=== PATIENT | female | born 1945 | race Caucasian/White ===

== ENCOUNTER → 2017-12-07 10:26 | Outpatient (CLI) | payer MEDICARE, OTHER ==
[2015-11-14 11:34] VITALS: BMI 22.6
[~2017-12-07 10:26] MED LIST: ADVAIR 250/501 DISK INH; BAYER CHEWABLE81 MG PO; COMBIVENT RESPIM4 GM INH; COREG25 MG PO; COZAAR50 MG PO; DALIRESP500 MCG PO; DOXYCYCLINE HY100 M2 PO; FLORAJEN3 CAPS460 MG PO; FLUTICASONE PRO16 GM NASAL; IPRAT-ALBUT 0.5-3 ML UPD; K-TAB10 MEQ PO; LANOXIN250 MCG PO; LASIX40 MG PO; OMNICEF300 MG PO; PREDNISONE20 MG PO; SALINE NASAL SP45 ML NASAL; SINGULAIR10 MG PO; XANAX0.25 MG PO
== END | disposition home or self-care (01) ==
LOC: D.RT 10:26
DX: J44.9 Chronic obstructive pulmonary disease, unspecified (principal)

== ENCOUNTER 2018-06-26 12:37 | Inpatient (IN) | payer MEDICARE, OTHER ==
[~2018-06-26] VITALS: Ht 167.6 cm; Wt 70.3 kg
[2018-06-26] VITALS (8 sets, daily range): BP systolic 136–148; BP diastolic 63–76
[2018-06-26 13:35] LABS: BASOPHILS 0.1 % (0-2); EOSINOPHILS 1.1 % (0-7); HEMATOCRIT 37.3 % (36.0-48.0); HEMOGLOBIN 11.8 g/dL (12-16); IMMATURE GRANULOCYTES 0.4 % (0-5); LYMPHOCYTES 10.9 % (15-50); MCHC 31.6 g/dL (31.0-37.0); MCV 91.6 fL (80.0-100.0); MEAN PLATELET VOLUME 8.7 fL (7.4-10.4); MONOCYTES 12.1 % (2-11); NEUTROPHILS 75.4 % (40-80); PLATELET COUNT 153 10x3/uL (130-400); RBC 4.07 10x6/uL (4.00-5.40)
[2018-06-26 13:36] LABS: APTT 25.4 SECONDS (22.8-39.4); INR 1.1 (0.85-1.17); PROTIME 13.7 SECONDS (11.6-15.0)
[2018-06-26 13:37] LABS: D-DIMER-QUANTITATIVE 0.64 ug/mLFEU (0.20-0.54)
[2018-06-26 13:38] LABS: ALBUMIN 3.2 g/dL (3.4-5.0); ALKALINE PHOSPHATASE 64 U/L (46-116); ALT (SGPT) 28 U/L (10-68); BILIRUBIN - TOTAL 0.92 mg/dL (0.2-1.3); CALC OSMOLALITY 287 mosm/kg (275-300); CALCIUM 8.9 mg/dL (8.5-10.1); CARBON DIOXIDE 30.9 mmol/L (21.0-32.0); CHLORIDE - SERUM 105 mmol/L (98-107); CREATININE - SERUM 0.4 mg/dL (0.6-1.3); GLUCOSE 101 mg/dL (74-106); POTASSIUM - SERUM 3.1 mmol/L (3.5-5.1); PROTEIN - SERUM 6.4 g/dL (6.4-8.2); SODIUM 145 mmol/L (136-145); UREA NITROGEN 10 mg/dL (7-18); eGFR NON AFRICAN AMERICAN > 90 mL/min (90-120)
[2018-06-26 13:56] LABS: CREATINE KINASE 29 UL (21-215); MAGNESIUM - SERUM 1.8 mg/dL (1.8-2.4)
[2018-06-26 13:59] LABS: TROPONIN-I 0.065 ng/mL (0.000-0.060)
--- NOTE | 2018-06-26 20:40 | NUR ---
REC'D. IN WET BED COMPLETE BATH GIVEN. RATING PAIN LEFT HIP 8 ON 1/10 PAIN SCALE.WILL CONTINUE TO MONITOR FOR ANY CHGES AND FOLLOW CURRENT PLAN OF CARE.
[2018-06-27] VITALS (7 sets, daily range): BP systolic 125–149; BP diastolic 64–77; Ht 167.6 cm; Wt 70.3 kg
--- NOTE | 2018-06-27 07:35 | NUR ---
PT RESTING IN BED, EYES OPEN. NO C/O PAIN. NO S/S OF ACUTE DISTRESS NOTED. PT ON BEDREST.ON ELECTROLYTE PROTOCOL. PT ON TELEMETRY ST 115. ON 3L O2, NC. IV TO LEFT FOREARM, SL. SITE PATENT WITHOUT REDNESS OR SWELLING. PT DENIES ANYTHING FURTHER AT THIS TIME. CALL LIGHT IN REACH. AT BEDSIDE. WILL CONTINUE TO MONITOR.
[2018-06-27 08:47] LABS: CALC OSMOLALITY 287 mosm/kg (275-300); CALCIUM 8.9 mg/dL (8.5-10.1); CARBON DIOXIDE 28.7 mmol/L (21.0-32.0); CHLORIDE - SERUM 105 mmol/L (98-107); CREATININE - SERUM 0.4 mg/dL (0.6-1.3); GLUCOSE 106 mg/dL (74-106); PRO BNP 3138 pg/mL (0-125); SODIUM 145 mmol/L (136-145); TROPONIN-I 0.045 ng/mL (0.000-0.060); UREA NITROGEN 9 mg/dL (7-18); eGFR NON AFRICAN AMERICAN > 90 mL/min (90-120)
[2018-06-27 08:48] LABS: POTASSIUM - SERUM 3.6 mmol/L (3.5-5.1)
[2018-06-27 08:51] LABS: BASOPHILS 0.2 % (0-2); EOSINOPHILS 1.5 % (0-7); HEMATOCRIT 38.4 % (36.0-48.0); HEMOGLOBIN 11.9 g/dL (12-16); IMMATURE GRANULOCYTES 0.4 % (0-5); LYMPHOCYTES 15.4 % (15-50); MCH 28.7 pg (26.0-34.0); MCV 92.8 fL (80.0-100.0); MEAN PLATELET VOLUME 9.7 fL (7.4-10.4); MONOCYTES 12.8 % (2-11); NEUTROPHILS 69.7 % (40-80); PLATELET COUNT 143 10x3/uL (130-400); RBC 4.14 10x6/uL (4.00-5.40); RDW 15.2 % (11.5-14.5); WBC 9.3 10x3/uL (4.8-10.8)
--- NOTE | 2018-06-27 18:43 | NUR ---
PT RESTING IN BED, EYES OPEN. NO C/O PAIN. NO S/S OF ACUTE DISTRESS NOTED. CALL LIGHT IN REACH. PT DENIES ANYTHING FURTHER. WILL CONTINUE TO MONITOR.
[2018-06-28 01:35] VITALS: BP 130/74
--- NOTE | 2018-06-28 05:03 | NUR ---
REC'D AT CHGE OF SHIFT.IN BED FAMILY AT BEDSIDE.CONTINUES TO C/O LEFT HIP PAIN. WILL CONTINUE TO MONITOR FOR ANY CHGES. AND FOLLOW CURRENT PLAN OF CARE.
[2018-06-28 05:25] VITALS: BP 120/68
--- NOTE | 2018-06-28 07:28 | NUR ---
PT IS RESTING IN BED WITH EYES OPEN. RESPIRATIONS ARE EVEN AND UNLABORED. O2 VIA NC @ 3L. PT DENIES PRESENCE OF DYSPNEA AND SOB AT THIS TIME. +2 PITTING EDEMA TO BILATERAL LOWER EXTREMITIES NOTED. PEDAL PULSES ARE PALPABLE AND CAP REFILL IS <3 SECONDS. EXP WHEEZES HEARD ON BILATERAL LOBES THROUGHOUT. PT REPORTS A SLIGHT COUGH. PT DENIES PRESENCE OF N/V. BED IS IN THE LOWEST POSITION. CALL LIGHT AND BEDSIDE TABLE ARE WITHIN REACH. SIDE RAILS X 2. WILL CONT TO MONITOR.
[2018-06-28 08:42] VITALS: BP 113/63
[2018-06-28 13:07] VITALS: BP 100/51
[2018-06-28 17:23] VITALS: BP 118/70
[2018-06-28 17:39] VITALS: BP 105/57
[2018-06-28 18:35] LABS: BASOPHILS 0.2 % (0-2); EOSINOPHILS 2.3 % (0-7); HEMATOCRIT 34.6 % (36.0-48.0); HEMOGLOBIN 10.6 g/dL (12-16); IMMATURE GRANULOCYTES 0.7 % (0-5); LYMPHOCYTES 19.6 % (15-50); MCHC 30.6 g/dL (31.0-37.0); MONOCYTES 13.4 % (2-11); NEUTROPHILS 63.8 % (40-80); PLATELET COUNT 166 10x3/uL (130-400); RBC 3.65 10x6/uL (4.00-5.40); RDW 15.4 % (11.5-14.5); WBC 8.8 10x3/uL (4.8-10.8)
[2018-06-28 18:36] LABS: MCV 94.8 fL (80.0-100.0)
[2018-06-28 18:55] LABS: ALBUMIN 2.8 g/dL (3.4-5.0); ANION GAP 11.7 mmol/L (8-16); BILIRUBIN - TOTAL 0.32 mg/dL (0.2-1.3); CALCIUM 8.6 mg/dL (8.5-10.1); CARBON DIOXIDE 30.4 mmol/L (21.0-32.0); PROTEIN - SERUM 6.1 g/dL (6.4-8.2)
[2018-06-28 18:58] LABS: POTASSIUM - SERUM 5.1 mmol/L (3.5-5.1)
[2018-06-29 03:05] VITALS: BP 122/69
--- NOTE | 2018-06-29 03:42 | NUR ---
I have reviewed this patient and I concur with the Shift Assessment completed by the Licensed Practical Nurse today this shift.
[2018-06-29 07:18] LABS: BASOPHILS 0.1 % (0-2); EOSINOPHILS 0.6 % (0-7); HEMATOCRIT 35.9 % (36.0-48.0); HEMOGLOBIN 10.8 g/dL (12-16); IMMATURE GRANULOCYTES 0.6 % (0-5); LYMPHOCYTES 14.9 % (15-50); MCH 28.6 pg (26.0-34.0); MCHC 30.1 g/dL (31.0-37.0); MEAN PLATELET VOLUME 9.4 fL (7.4-10.4); MONOCYTES 10.1 % (2-11); NEUTROPHILS 73.7 % (40-80); PLATELET COUNT 188 10x3/uL (130-400); RBC 3.78 10x6/uL (4.00-5.40); RDW 15.4 % (11.5-14.5); WBC 8.4 10x3/uL (4.8-10.8)
[2018-06-29 07:28] LABS: ALBUMIN 2.9 g/dL (3.4-5.0); ALKALINE PHOSPHATASE 62 U/L (46-116); ALT (SGPT) 24 U/L (10-68); BILIRUBIN - TOTAL 0.43 mg/dL (0.2-1.3); CALC OSMOLALITY 285 mosm/kg (275-300); CALCIUM 9.1 mg/dL (8.5-10.1); CARBON DIOXIDE 31.3 mmol/L (21.0-32.0); CHLORIDE - SERUM 105 mmol/L (98-107); GLUCOSE 127 mg/dL (74-106); POTASSIUM - SERUM 4.7 mmol/L (3.5-5.1); PROTEIN - SERUM 6.4 g/dL (6.4-8.2); SODIUM 141 mmol/L (136-145); UREA NITROGEN 21 mg/dL (7-18); eGFR NON AFRICAN AMERICAN 87 mL/min (90-120)
[2018-06-29 07:35] LABS: CREATININE - SERUM 0.7 mg/dL (0.6-1.3)
[2018-06-29 09:05] VITALS: BP 124/64
--- NOTE | 2018-06-29 10:25 | NUR ---
PATIENT NOTED TO HAVING A LOT OF BRUISING ON ARMS AND LEGS, ALL AREAS PADDED SECURED WITH NO IMPINGEMENTS, UNDER RIGHT LEG EXTRA PADDING, TWORLEY.
--- NOTE | 2018-06-29 10:38 | NUR ---
MORNING ASSESSMENT COMPLETE. SEE ASSESSMENT FLOWSHEET FOR FURTHER DETIALS. PT IN SX.
[2018-06-29 12:02] VITALS: BP 119/62
--- NOTE | 2018-06-29 13:33 | NUR ---
Nutrition Follow Up: Chart reviewed Diet: Regular PO Intake: 100% meal avg BM: 06/28/18 Labs reviewed Meds noted including Reglan, Lasix Rec continue current diet. RD following.
[2018-06-29 16:17] LABS: APPEARANCE CLEAR (CLEAR); BILIRUBIN NEGATIVE (NEGATIVE); COLOR STRAW (YELLOW); KETONE NEGATIVE (NEGATIVE); NITRITE NEGATIVE (NEGATIVE); SPECIFIC GRAVITY 1.005 (1.005-1.020); UROBILINOGEN NORMAL (NORMAL)
--- NOTE | 2018-06-29 16:29 | MORECARE ---
CASE MANAGEMENT DISCHARGE SUMMARY PATIENT: XU URIBE UNIT: [id number] ADM DATE: 06/26/18 AGE: 73 : 47 SEX: F ROOM/BED: D.2229 AUTHOR: TRACY TIERNEY PHYSICIAN: REFERRING PHYSICIAN: TAYLA ESPINOZA MD DATE OF SERVICE: 06/29/18 Discharge Plan Patient Name: XU URIBE Facility: [facility]:[place] : 1945 Planned Disposition: Inpatient Rehab Anticipated Discharge Date: Discharge Date: Expected LOS: Initial Reviewer: [email or web address] Initial Review Date: 06/29/2018 Generated: 06/29/18 5:29 pm DCPIA - Discharge Planning Initial Assessment Updated by [email or web address]: Kamilla Carcamo on 06/29/18 4:26 pm * Is the patient Alert and Oriented? Yes * PCP Dr. Espinoza * Pharmacy [place] [id number] * Preadmission Environment Home with Family * ADLs Partial Dependent * Partial ADLs (Assistance needed) Ambulation * Equipment Elevated Toliet Seat Nebulizer Other Oxygen Shower Chair * Other Equipment Lift chair Portable oxygen * List name and contact numbers for known caregivers / representatives who currently or will assist patient after discharge: Singh Uribe - spouse - [phone] * Verbal permission to speak to the caregivers and representatives has been obtained from the patient. Yes * Community resources currently utilized None * Please name any agencies selected above. [facility] for DME for oxygen supplies * Additional services required to return to the preadmission environment? Yes * Can the patient safely return to the preadmission environment? Yes * Has this patient been hospitalized within the prior 30 days at any hospital? No Patient Name: XU URIBE Page [id number] at 1629 All edits/amendments must be made on the electronic document DICTATION DATE: 06/29/181628 CLINIC OFFICE MANAGER: CAIN 06/29/181628 RPT#: [id number] DC DATE: STATUS: ADM IN [facility] [address] [place] [address] END OF REPORT
[2018-06-29 16:31] LABS: GLUCOSE NEGATIVE (NEGATIVE); PROTEIN NEGATIVE (NEGATIVE)
--- NOTE | 2018-06-29 16:42 | MORECARE ---
CASE MANAGEMENT DISCHARGE SUMMARY PATIENT: XU URIBE UNIT: [id number] ADM DATE: 06/26/18 AGE: 73 : 47 SEX: F ROOM/BED: D.2229 AUTHOR: KELSY,DOC PHYSICIAN: REFERRING PHYSICIAN: TAYLA ESPINOZA MD DATE OF SERVICE: 06/29/18 Discharge Plan Patient Name: XU URIBE Facility: [facility]:[place] : 1945 Planned Disposition: Inpatient Rehab Anticipated Discharge Date: Discharge Date: Expected LOS: Initial Reviewer: [email or web address] Initial Review Date: 06/29/2018 Generated: 06/29/18 5:41 pm Comments DCP- Discharge Planning Updated by [email or web address]: Kamilla Carcamo on 06/29/18 3:[address] Patient Name: XU URIBE Admission Status: ER Accout number: [id number] Admission Date: 06-26-2018 : 1945 Admission Diagnosis:HYPERTENSIVE HEART DISEASE WITH HEART FAILURE Attending: TAYLA ESPINOZA Current LOS: 3 Anticipated DC Date: Planned Disposition: Inpatient Rehab Primary Insurance: MEDICARE A & B Discharge Planning Comments: CM met with patient to complete initial dc planning assessment. CM educated patient on the CM role and verbal consent given by patient to complete assessment. Patient lives at home with her . She states that she has rented a wheelchair since her hips have been bothering her. States before her hips started causing her problems, she was completely independent. CM discussed availability of home health, rehab services, and medical equipment. Patient states she will need a walker prior to discharge and may need rehab. Her preference would be inpatient rehab here at [facility]. States if they do not accept her she would consider [facility]. CM will continue to follow and will assist as needed with dc plans/needs. [employer] Consultant: Kamilla Carcamo DCPIA - Discharge Planning Initial Assessment Updated by [email or web address]: Kamilla Carcamo on 06/29/18 4:26 pm * Is the patient Alert and Oriented? Yes * PCP Dr. Espinoza * [facility] * Preadmission Environment Home with Family * ADLs Partial Dependent * Partial ADLs (Assistance needed) Ambulation * Equipment Elevated Toliet Seat Nebulizer Other Oxygen Shower Chair * Other Equipment Lift chair Portable oxygen * List name and contact numbers for known caregivers / representatives who currently or will assist patient after discharge: Singh Uribe - spouse - [phone] * Verbal permission to speak to the caregivers and representatives has been obtained from the patient. Yes * Community resources currently utilized None * Please name any agencies selected above. [facility] for DME for oxygen supplies * Additional services required to return to the preadmission environment? Yes * Can the patient safely return to the preadmission environment? Yes * Has this patient been hospitalized within the prior 30 days at any hospital? No Last DP export: 06/29/18 3:29 p Patient Name: XU URIBE Page [id number] at 1642 All edits/amendments must be made on the electronic document DICTATION DATE: 06/29/181640 GAS COMPRESSOR TURBINE OPERATOR: CAIN 06/29/181640 RPT#: [id number] DC DATE: STATUS: ADM IN [facility] [address] [place] [address] END OF REPORT
[2018-06-29 17:40] VITALS: BP 109/61
[2018-06-29 20:06] VITALS: BP 121/67
[2018-06-30 00:57] VITALS: BP 121/64
--- NOTE | 2018-06-30 03:01 | NUR ---
I have reviewed this patient and I concur with the Shift Assessment completed by the Licensed Practical Nurse today this shift.
[2018-06-30 06:13] LABS: BASOPHILS 0.1 % (0-2); EOSINOPHILS 0.1 % (0-7); HEMATOCRIT 30.5 % (36.0-48.0); HEMOGLOBIN 9.4 g/dL (12-16); IMMATURE GRANULOCYTES 0.6 % (0-5); LYMPHOCYTES 9.1 % (15-50); MCH 28.5 pg (26.0-34.0); MCHC 30.8 g/dL (31.0-37.0); MEAN PLATELET VOLUME 9.3 fL (7.4-10.4); MONOCYTES 14.4 % (2-11); NEUTROPHILS 75.7 % (40-80); PLATELET COUNT 174 10x3/uL (130-400)
[2018-06-30 06:19] LABS: WBC 10.9 10x3/uL (4.8-10.8)
[2018-06-30 06:20] LABS: MCV 92.4 fL (80.0-100.0)
[2018-06-30 06:24] LABS: CALC OSMOLALITY 284 mosm/kg (275-300); CALCIUM 8.5 mg/dL (8.5-10.1); CHLORIDE - SERUM 104 mmol/L (98-107); CREATININE - SERUM 0.6 mg/dL (0.6-1.3); GLUCOSE 126 mg/dL (74-106); POTASSIUM - SERUM 4.2 mmol/L (3.5-5.1); SODIUM 141 mmol/L (136-145); UREA NITROGEN 18 mg/dL (7-18); eGFR NON AFRICAN AMERICAN > 90 mL/min (90-120)
--- NOTE | 2018-06-30 08:00 | NUR ---
A/A/OX4. RESTING QUIETLY POSITIONED ON BACK. DRESSING TO LEFT HIP WITH SMALL AMT BLOODY DRAINAGE. WILL CONTINUE TO OBSERVE FOR MORE DRAINAGE. ASSESSMENT COMPLETED WITH NO REQUESTS VOICED. WILL CONTINUE POC.
--- NOTE | 2018-06-30 09:41 | OP ---
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 PROCEDURE: Left total hip arthroplasty. SURGEON: Cristina Jay MD ANESTHESIA: General. INTRAOPERATIVE COMPLICATIONS: None. SUMMARY OF PATHOLOGIC FINDINGS: Collapse of the superior aspect of the femoral head consistent with preoperative radiographs. INDICATIONS: This patient became so painful that she would not take her Lasix because she has to get up and walk to the bathroom. She came in with congestive heart failure. After that was cleared and we got cardiac and pulmonary clearance for surgery. The patient was brought to the operating room for total hip arthroplasty for avascular necrosis. OPERATIVE SUMMARY IN DETAIL: After obtaining the appropriate preoperative orthopedic surgery consent as well as anesthetic consultation, evaluation and clearance, the patient was brought to the operating room and placed on the operating table in supine position. After general laryngeal mask airway was administered, the patient was placed in a right lateral decubitus and all pressure points were well padded to include down leg peroneal pad as well as the axillary roll. The patient was held firmly to the operating table using the vacuum pack suction system. Left lower extremity and hip were then prepped and draped in routine sterile fashion. Curvilinear incision was made in the greater trochanter, this was taken down along the IT band, was split in midline on the IT band to reveal the gluteus medius minimus attached the greater trochanter. This was reflected anteriorly to reveal the hip capsule. The hip capsule was split in a T-type fashion and saved for later reapproximation. Hip was dislocated. Femoral neck cut was made using the femoral neck cutting guide for the Accolade II system. Pathologic femoral head was noted. Attention was turned to the acetabulum. Circumferential labrectomy was followed by serial and sequential reaming for a size 54 Trident II cup, which was put into place with excellent capture. Polyethylene was then put into place. Attention was then returned to the proximal femur. Leg in the [id number] position. Serial and sequential reaming and broaching were done of the proximal femur for a size 6. Accolade II stem, which seated nicely. Trial was undertaken with modular heads. Standard was thought to be the most appropriate. Standard head was tamped into place on the Clemens taper. Ceramic Biolox was then reduced into the acetabulum, taken through range of motion and found to be stable in all planes. Copious irrigation was then followed by closure of the capsule with #2 Ethibond followed by #5 Ethibond reapproximation back to the greater trochanter using transosseous sutures. IT band was likewise closed with #5 Ethibond, then followed by #1 Vicryl, 2-0 Vicryl and skin geoff. Intraoperative radiograph showed excellent OPERATIVE REPORT [id number] XU URIBE position and placement of all components. Sterile dressings were applied. The patient was awakened and taken to recovery room in stable condition. All final needle and sponge counts were correct. TRANSINT:[id number] Voice Confirmation ID: [id number] DOCUMENT ID: [id number] PIERRE SHEA, CRISTINA ALVARADO at 0941 CC: [id number] DICTATION DATE: 06/29/18 1102 VIDEO ARCADE MANAGER: 06/29/18 1240 ADM IN [facility] [address] [place] [address]
--- NOTE | 2018-06-30 09:53 | MORECARE ---
CASE MANAGEMENT DISCHARGE SUMMARY PATIENT: XU URIBE UNIT: [id number] ADM DATE: 06/26/18 AGE: 73 : 47 SEX: F ROOM/BED: D.2229 AUTHOR: TRACY TIERNEY PHYSICIAN: REFERRING PHYSICIAN: TAYLA ESPINOZA MD DATE OF SERVICE: 06/30/18 Discharge Plan Patient Name: XU URIBE Facility: [facility]:[place] : 1945 Planned Disposition: Inpatient Rehab Anticipated Discharge Date: Discharge Date: Expected LOS: Initial Reviewer: [email or web address] Initial Review Date: 06/29/2018 Generated: 06/30/18 10:53 am Comments DCP- Discharge Planning Updated by [email or web address]: Carrol Terrazas on 06/30/18 8:[address] CM CONSULT RECEIVED THIS AM. PATIENT HAS BEEN ASSESSED FOR DISCHARGE PLANNING. AWAITING OT AND PT EVALUATIONS. [facility] REHAB WILL PRESCREEN. CASE MANGEMENT FOLLOWING. DCP- Discharge Planning Updated by [email or web address]: Kamilla Carcamo on 06/29/18 3:[address] Patient Name: XU URIBE Admission Status: ER Accout number: [id number] Admission Date: 06-26-2018 : 1945 Admission Diagnosis:HYPERTENSIVE HEART DISEASE WITH HEART FAILURE Attending: TAYLA ESPINOZA Current LOS: 3 Anticipated DC Date: Planned Disposition: Inpatient Rehab Primary Insurance: MEDICARE A & B Discharge Planning Comments: CM met with patient to complete initial dc planning assessment. CM educated patient on the CM role and verbal consent given by patient to complete assessment. Patient lives at home with her . She states that she has rented a wheelchair since her hips have been bothering her. States before her hips started causing her problems, she was completely independent. CM discussed availability of home health, rehab services, and medical equipment. Patient states she will need a walker prior to discharge and may need rehab. Her preference would be inpatient rehab here at [facility]. States if they do not accept her she would consider [facility]. CM will continue to follow and will assist as needed with dc plans/needs. Head Packager: Kamilla Carcamo DCPIA - Discharge Planning Initial Assessment Updated by [email or web address]: Kamilla Carcamo on 06/29/18 4:26 pm * Is the patient Alert and Oriented? Yes * PCP Dr. Espinoza * Pharmacy [place] [address] * Preadmission Environment Home with Family * ADLs Partial Dependent * Partial ADLs (Assistance needed) Ambulation * Equipment Elevated Toliet Seat Nebulizer Other Oxygen Shower Chair * Other Equipment Lift chair Portable oxygen * List name and contact numbers for known caregivers / representatives who currently or will assist patient after discharge: Singh Uribe - spouse - [phone] * Verbal permission to speak to the caregivers and representatives has been obtained from the patient. Yes * Community resources currently utilized None * Please name any agencies selected above. [employer] for DME for oxygen supplies * Additional services required to return to the preadmission environment? Yes * Can the patient safely return to the preadmission environment? Yes * Has this patient been hospitalized within the prior 30 days at any hospital? No Last DP export: 06/29/18 3:42 p Patient Name: XU URIBE Page 12265 at 0953 All edits/amendments must be made on the electronic document DICTATION DATE: 06/30/18952 TABLE GAMES SHIFT MANAGER: CAIN 06/30/18952 RPT#: [id number] DC DATE: STATUS: ADM IN [facility] [address] [place] [address] END OF REPORT
[2018-06-30 10:19] VITALS: BP 109/58
--- NOTE | 2018-06-30 16:45 | NUR ---
rehab prescreen: pt needs a therapy eval to see her function level. will eval when able to know her function level. thank you for this eval. leighann trevizo lpn clinical liasion
[2018-06-30 18:08] VITALS: BP 142/88
[2018-06-30 21:07] VITALS: BP 105/56
[2018-07-01 05:29] VITALS: BP 133/58
[2018-07-01 06:33] LABS: BASOPHILS 0.2 % (0-2); EOSINOPHILS 1.4 % (0-7); HEMATOCRIT 28.1 % (36.0-48.0); HEMOGLOBIN 8.8 g/dL (12-16); IMMATURE GRANULOCYTES 1.1 % (0-5); LYMPHOCYTES 14.6 % (15-50); MCH 28.9 pg (26.0-34.0); MCHC 31.3 g/dL (31.0-37.0); MCV 92.4 fL (80.0-100.0); MONOCYTES 13.6 % (2-11); NEUTROPHILS 69.1 % (40-80); PLATELET COUNT 162 10x3/uL (130-400); RBC 3.04 10x6/uL (4.00-5.40); RDW 15.4 % (11.5-14.5); WBC 11.1 10x3/uL (4.8-10.8)
[2018-07-01 06:50] LABS: ANION GAP 11.1 mmol/L (8-16); CALCIUM 8.6 mg/dL (8.5-10.1); CARBON DIOXIDE 30.9 mmol/L (21.0-32.0)
[2018-07-01 08:05] VITALS: BP 98/46
[2018-07-01 11:53] VITALS: BP 105/54
--- NOTE | 2018-07-01 14:17 | NUR ---
I have reviewed this patient and I concur with the Shift Assessment completed by the Licensed Practical Nurse today this shift.
[2018-07-01 15:06] VITALS: BP 88/46
--- NOTE | 2018-07-01 15:45 | NUR ---
I have reviewed this patient and I concur with the Shift Assessment completed by the Licensed Practical Nurse today this shift.
[2018-07-01 20:32] VITALS: BP 156/48
--- NOTE | 2018-07-01 21:00 | NUR ---
PT REPORTS STILL UNABLE TO PASS BM SINCE THE DAY BEFORE SHE WAS ADMITTED. BOWEL SOUNDS ACTIVE. ABDOMEN NON-TENDER, PT HAS BEEN PASSING GAS QUITE FREQUENTLY AND FEELS THE URGE, BUT NOTHING COMES OUT. ENCOURAGED PT TO DRINK FLUIDS, MOVE POSITIONS IN BED FREQUENTLY, AND AMBULATING MAY HELP. DRESSING TO LEFT HIP IS SATURATED WITH BLOOD. BANDAGE REMOVED, INCISION CLEANSED, CLEAN MEPILEX BORDER REAPPLIED TO SITE.
[2018-07-02 01:25] VITALS: BP 101/47
[2018-07-02 06:02] VITALS: BP 108/58
[2018-07-02 07:41] LABS: CALC OSMOLALITY 284 mosm/kg (275-300); CALCIUM 8.8 mg/dL (8.5-10.1); CARBON DIOXIDE 28.8 mmol/L (21.0-32.0); CHLORIDE - SERUM 103 mmol/L (98-107); GLUCOSE 109 mg/dL (74-106); HEMATOCRIT 27.9 % (36.0-48.0); MCHC 32.3 g/dL (31.0-37.0); MEAN PLATELET VOLUME 9.2 fL (7.4-10.4); PLATELET COUNT 172 10x3/uL (130-400); POTASSIUM - SERUM 4.1 mmol/L (3.5-5.1); RDW 15.5 % (11.5-14.5); SODIUM 139 mmol/L (136-145); UREA NITROGEN 30 mg/dL (7-18); WBC 11.8 10x3/uL (4.8-10.8)
[2018-07-02 07:43] LABS: CREATININE - SERUM 0.6 mg/dL (0.6-1.3); eGFR NON AFRICAN AMERICAN > 90 mL/min (90-120)
[2018-07-02 08:05] LABS: EOSINOPHILS 1 % (0-7); LYMPHOCYTES 14 % (15-50); MONOCYTES 7 % (2-11); NEUTROPHILS 74 % (40-80); PLATELET ESTIMATE NORMAL
[2018-07-02 09:00] VITALS: BP 120/69
--- NOTE | 2018-07-02 11:37 | NUR ---
PATIENT UP TO BEDSIDE TOILET THEN BACK TO CHAIR. CHAIR ALARM ON GOWN, PAD, SOCKS, AND SCD'S CHANGED AND REPLACED. PHONE/CL IN REACH. [facility]
[2018-07-02 14:03] VITALS: BP 90/44
[2018-07-02 16:53] VITALS: BP 102/52
--- NOTE | 2018-07-02 21:15 | NUR ---
A&O. REPORTS PAIN TO LEFT HIP, 09/15. DRESSING C/D/I. VITAL SIGNS STABLE. WILL CONTINUE TO MONITOR.
[2018-07-02 22:12] VITALS: BP 100/54
[2018-07-03 01:15] VITALS: BP 107/57
--- NOTE | 2018-07-03 03:08 | NUR ---
I have reviewed this patient and I concur with the Shift Assessment completed by the Licensed Practical Nurse today this shift.
[2018-07-03 05:11] LABS: BASOPHILS 0.2 % (0-2); HEMATOCRIT 25.5 % (36.0-48.0); IMMATURE GRANULOCYTES 1.5 % (0-5); LYMPHOCYTES 16.7 % (15-50); MCH 28.4 pg (26.0-34.0); MCHC 31.4 g/dL (31.0-37.0); MCV 90.4 fL (80.0-100.0); MEAN PLATELET VOLUME 9.2 fL (7.4-10.4); MONOCYTES 11.9 % (2-11); NEUTROPHILS 67.7 % (40-80); PLATELET COUNT 205 10x3/uL (130-400); RBC 2.82 10x6/uL (4.00-5.40); RDW 15.4 % (11.5-14.5); WBC 9.5 10x3/uL (4.8-10.8)
[2018-07-03 05:29] VITALS: BP 103/59
[2018-07-03 05:45] LABS: CALC OSMOLALITY 283 mosm/kg (275-300); CALCIUM 8.6 mg/dL (8.5-10.1); CARBON DIOXIDE 30.2 mmol/L (21.0-32.0); CHLORIDE - SERUM 102 mmol/L (98-107); CREATININE - SERUM 0.5 mg/dL (0.6-1.3); GLUCOSE 121 mg/dL (74-106); POTASSIUM - SERUM 4.1 mmol/L (3.5-5.1); SODIUM 139 mmol/L (136-145); UREA NITROGEN 26 mg/dL (7-18); eGFR NON AFRICAN AMERICAN > 90 mL/min (90-120)
--- NOTE | 2018-07-03 08:18 | NUR ---
ALERT AND ORIENTED X 3. LUNGS CLEAR BILATERALLY IN ALL BREWER. HEART SOUNDS S1 AND S2 HEARD IN ALL BREWER. TELEMETRY IN PLACE. 81 SINUS RHYTHM. O2 IN PLACE AT 1.5L. BOWEL SOUNDS ACTIVE X 4. SKIN INTACT WITHOUT REDNESS. DENIES PAIN. DENIES NEEDS. FALL PRECAUTIONS IN PLACE. BED LOW. CALL SORENSON AND PERSONAL ITEMS IN REACH. WILL CONTINUE TO MONITOR.
[2018-07-03 09:04] VITALS: BP 109/62
--- NOTE | 2018-07-03 10:12 | NUR ---
UP IN CHAIR AT BEDSIDE. CHECKED DRSG TO LEFT HIP FOR BLEEDING. NO BLEEDING NOTED AT THIS TIME. DENIES PAIN. DENIES NEEDS. WILL CONTINUE TO MONITOR.
[2018-07-03 13:34] VITALS: BP 124/76
--- NOTE | 2018-07-03 14:19 | NUR ---
OT NOTE: PT INITIALLY SEEN AND WAS UP IN CHAIR. STATED THAT SHE HAD AMBULATED WITH P.T. TO THE DOOR AND BACK. IN PM, PT WAS BACK IN BED; PT ABLE TO PERFORM BED MOB INCLUDING ROLLLING SIDE TO SIDE WITH MIN/MOD ASSIST.ANSWERED QUESTIONS REGARDING IP REHAB AND WHAT TO EXPECT. PERFORMED UE STRENGTHENING EXS WITH MOD REST BREAKS. INSTRUCTED TO PERFORM 2 MORE SETS AT PROVIDED TIMES. PT ANXIOUS TO GET TO REHAB. CHECKED MED CHART BUT DID NOT SEE TIME FOR TRANSFER. RAMIRO CÁRDENAS, OTR/L
--- NOTE | 2018-07-03 15:43 | NUR ---
OT NOTE: PT COMPLETED HYGIENE TASKS WITH SET UP. PT COMPLETED BUE AROM AXS. THANK YOU,SALENA SAGE
[2018-07-03 16:14] VITALS: BP 99/57
--- NOTE | 2018-07-03 16:28 | NUR ---
RESTING IN BED. DENIES PAIN. DENIES NEEDS. WILL CONTINUE TO MONITOR.
--- NOTE | 2018-07-03 16:29 | MORECARE ---
CASE MANAGEMENT DISCHARGE SUMMARY PATIENT: XU URIBE UNIT: [id number] ADM DATE: 06/26/18 AGE: 73 : [birth year] SEX: F ROOM/BED: D.2229 AUTHOR: KELSY,DOC PHYSICIAN: REFERRING PHYSICIAN: TAYLA ESPINOZA MD DATE OF SERVICE: 07/03/18 Discharge Plan Patient Name: XU URIBE Facility: [facility]:[place] : 1945 Planned Disposition: Inpatient Rehab Anticipated Discharge Date: Discharge Date: Expected LOS: Initial Reviewer: [email or web address] Initial Review Date: 06/29/2018 Generated: 07/03/18 5:29 pm Comments DCP- Discharge Planning Updated by [email or web address]: Kamilla Carcamo on 07/03/18 3:[address] I spoke with Porsha in inpatient rehab, they will accept her today. I called Dr. Espinoza and he states he will write discharge orders. I spoke with the patient, she states she will call her and inform him. IMM explained, signed, given. To inpatient rehab today. DCP- Discharge Planning Updated by [email or web address]: Carrol Terrazas on 06/30/18 8:[address] CM CONSULT RECEIVED THIS AM. PATIENT HAS BEEN ASSESSED FOR DISCHARGE PLANNING. AWAITING OT AND PT EVALUATIONS. [facility] RE[facility] WILL PRESCREEN. CASE MANGEMENT FOLLOWING. DCP- Discharge Planning Updated by [email or web address]: Kamilla Carcamo on 06/29/18 3:[address] Patient Name: XU URIBE Admission Status: ER Accout number: [id number] Admission Date: 06-26-2018 : 1945 Admission Diagnosis:HYPERTENSIVE HEART DISEASE WITH HEART FAILURE Attending: TAYLA ESPINOZA Current LOS: 3 Anticipated DC Date: Planned Disposition: Inpatient Rehab Primary Insurance: MEDICARE A & B Discharge Planning Comments: CM met with patient to complete initial dc planning assessment. CM educated patient on the CM role and verbal consent given by patient to complete assessment. Patient lives at home with her . She states that she has rented a wheelchair since her hips have been bothering her. States before her hips started causing her problems, she was completely independent. CM discussed availability of home health, rehab services, and medical equipment. Patient states she will need a walker prior to discharge and may need rehab. Her preference would be inpatient rehab here at [facility]. States if they do not accept her she would consider [facility]. CM will continue to follow and will assist as needed with dc plans/needs. Industrial Equipment Wirer: Kamilla Dona DCPIA - Discharge Planning Initial Assessment Updated by [email or web address]: Kamilla Carcamo on 06/29/18 4:26 pm * Is the patient Alert and Oriented? Yes * PCP Dr. Espinoza * Pharmacy [facility] [address] * Preadmission Environment Home with Family * ADLs Partial Dependent * Partial ADLs (Assistance needed) Ambulation * Equipment Elevated Toliet Seat Nebulizer Other Oxygen Shower Chair * Other Equipment Lift chair Portable oxygen * List name and contact numbers for known caregivers / representatives who currently or will assist patient after discharge: Singh Uribe - spouse - [phone] * Verbal permission to speak to the caregivers and representatives has been obtained from the patient. Yes * Community resources currently utilized None * Please name any agencies selected above. [facility] for DME for oxygen supplies * Additional services required to return to the preadmission environment? Yes * Can the patient safely return to the preadmission environment? Yes * Has this patient been hospitalized within the prior 30 days at any hospital? No Coverage Notice Reviewer: [email or web address] - Kamilla Dona Notice Issued Date-Time: 07/03/2018 16:13 Notice Type: IM Discharge Notice Notice Delivered To: Patient Relationship to Patient: Self Hadoop Analyst Name: Delivery Method: HAND - Hand Delivered Justine Days: Prior Verbal Notification: Recipient Understood Notice: Yes Recipient Signature: Yes Med Rec Note Co-signed by Attending: Coverage Notice Comment: IMM explained, signed, given, copy placed in MR Last DP export: 06/30/18 8:53 a Patient Name: XU URIBE Page [id number] at 1629 All edits/amendments must be made on the electronic document DICTATION DATE: 07/03/181627 BAKELITE MOLDER: CAIN 07/03/181627 RPT#: [id number] DC DATE: STATUS: ADM IN [facility] [address] [place] [address] END OF REPORT
[2018-07-03] MEDS ORDERED: NORCO-10 PO (17:22)
--- NOTE | 2018-07-03 18:19 | NUR ---
DISCHARGE EDUCATION PROVIDED BOTH WRITTEN AND VERBAL. VERBALIZED UNDERSTANDING. DENIES FURTHER QUESTIONS. REPORT CALLED TO REHAB. PATIENT TRANSFERRED TO [facility] REHAB ROOM 1108A WITH ALL BELONGINGS.
--- NOTE | 2018-07-05 15:31 | MORECARE ---
CASE MANAGEMENT DISCHARGE SUMMARY PATIENT: XU URIBE UNIT: [id number] ADM DATE: 06/26/18 AGE: 73 : [birth year] SEX: F ROOM/BED: D.2229 AUTHOR: KELSY,DOC PHYSICIAN: REFERRING PHYSICIAN: TAYLA ESPINOZA MD DATE OF SERVICE: 07/05/18 Discharge Plan Patient Name: XU URIBE Facility: [facility]:[place] : 1945 Planned Disposition: Inpatient Rehab Anticipated Discharge Date: Discharge Date: 07/03/2018 Expected LOS: 0 Initial Reviewer: [id number] Initial Review Date: 06/29/2018 Generated: 07/05/18 4:31 pm Comments DCP- Discharge Planning Updated by [email or web address]: Kamilla Carcamo on 07/03/18 3:[address] I spoke with Porsha in inpatient rehab, they will accept her today. I called Dr. Espinoza and he states he will write discharge orders. I spoke with the patient, she states she will call her and inform him. IMM explained, signed, given. To inpatient rehab today. DCP- Discharge Planning Updated by [id number]: Carrol Terrazas on 06/30/18 8:[address] CM CONSULT RECEIVED THIS AM. PATIENT HAS BEEN ASSESSED FOR DISCHARGE PLANNING. AWAITING OT AND PT EVALUATIONS. [facility] WILL PRESCREEN. CASE MANGEMENT FOLLOWING. DCP- Discharge Planning Updated by [id number]: Kamilla Carcamo on 06/29/18 3:[address] Patient Name: XU URIBE Admission Status: ER Accout number: [id number] Admission Date: 06-26-2018 : 1945 Admission Diagnosis:HYPERTENSIVE HEART DISEASE WITH HEART FAILURE Attending: TAYLA ESPINOZA Current LOS: 3 Anticipated DC Date: Planned Disposition: Inpatient Rehab Primary Insurance: MEDICARE A & B Discharge Planning Comments: CM met with patient to complete initial dc planning assessment. CM educated patient on the CM role and verbal consent given by patient to complete assessment. Patient lives at home with her . She states that she has rented a wheelchair since her hips have been bothering her. States before her hips started causing her problems, she was completely independent. CM discussed availability of home health, rehab services, and medical equipment. Patient states she will need a walker prior to discharge and may need rehab. Her preference would be inpatient rehab here at [facility]. States if they do not accept her she would consider [facility]. CM will continue to follow and will assist as needed with dc plans/needs. Rug Drying Machine Operator: Kamilla Lemamp DCPIA - Discharge Planning Initial Assessment Updated by [id number]: Kamilla Dona on 06/29/18 4:26 pm * Is the patient Alert and Oriented? Yes * PCP Dr. Espinoza * Pharmacy [facility] * Preadmission Environment Home with Family * ADLs Partial Dependent * Partial ADLs (Assistance needed) Ambulation * Equipment Elevated [place] Seat Nebulizer Other Oxygen Shower Chair * Other Equipment Lift chair Portable oxygen * List name and contact numbers for known caregivers / representatives who currently or will assist patient after discharge: Singh Uribe - spouse - [phone] * Verbal permission to speak to the caregivers and representatives has been obtained from the patient. Yes * Community resources currently utilized None * Please name any agencies selected above. [facility] [place] for DME for oxygen supplies * Additional services required to return to the preadmission environment? Yes * Can the patient safely return to the preadmission environment? Yes * Has this patient been hospitalized within the prior 30 days at any hospital? No Coverage Notice Reviewer: [id number] - Kamilla Dona Notice Issued Date-Time: 07/03/2018 16:13 Notice Type: IM Discharge Notice Notice Delivered To: Patient Relationship to Patient: Self Math And Physics Instructor Name: Delivery Method: HAND - Hand Delivered Justine Days: Prior Verbal Notification: Recipient Understood Notice: Yes Recipient Signature: Yes Med Rec Note Co-signed by Attending: Coverage Notice Comment: IMM explained, signed, given, copy placed in MR Last DP export: 07/03/18 3:29 p Patient Name: XU URIBE Page [id number] at 1531 All edits/amendments must be made on the electronic document DICTATION DATE: 07/05/18 1531 PRESS LEADER: CAIN 07/05/18 1531 RPT#: [id number] DC DATE:07/03/18 STATUS: DIS IN [facility] [address] [place] [address] END OF REPORT
--- NOTE | 2018-07-06 11:27 | CN ---
PATIENT NAME:XU URIBE MEDICAL RECORD: [id number] : [birth year] LOCATION:D.MS [facility]29 ADMIT DATE: 06/26/18 ACCOUNT: [id number] CONSULTING PHYSICIAN: ALEXANDER SANDOVAL MD REFERRING PHYSICIAN: TAYLA ESPINOZA MD DATE OF CONSULTATION: 06/27/2018 CARDIOLOGY CONSULT DIAGNOSES: 1. Preoperative evaluation for hip surgery. 2. Cardiomyopathy, nonischemic. 3. Coronary artery disease. 4. Abnormal ECG, left bundle branch block. 5. Hypertension. HISTORY OF PRESENT ILLNESS: Ms. Uribe is known to us. She has a past history of a cardiomyopathy, ejection fraction in the 15% range. Last echocardiogram was August of 2017, ejection fraction had increased then to the 35% range. She has a history of cardiac catheterization in 2007 revealing [id number] coronary artery disease, but cardiomyopathy in the 15% range out of proportion of the coronary artery disease hence the cardiomyopathy was deemed nonischemic. She is well compensated with no anginal symptomatology. No heart failure symptomatology, on losartan and Coreg, Lasix therapy. She has a history of valvular heart disease with mitral regurgitation. This was stable on last echo as well. She now is in need of hip surgery. PHYSICAL EXAMINATION: GENERAL APPEARANCE: Well-nourished, well-developed, appears stated age. Level of distress, comfortable. PSYCHIATRIC: Mental status, alert, normal affect. Orientation, oriented to time, place and person. EYES: Lids and conjunctiva, noninjected. No discharge, no pallor. ENT: Lips, teeth, gums, normal dentition. Oropharynx, no cyanosis, no pallor. NECK: Carotid arteries, bilateral normal upstroke, no bruits, no thrills. JUGULAR VEINS: No jugular venous pressure or distention. CERVICAL LYMPH NODES: Nontender, nonenlarged. THYROID: Not enlarged. Nontender. No nodules. LUNGS: Respiratory effort, unlabored. CHEST: Normal curvature. No thoracic deformity. No chest wall tenderness. Percussion, resonant. Auscultation, clear. No wheezes, no rales, no rhonchi. CARDIOVASCULAR: Precordial exam, nondisplaced. No heaves or pericardial thrills. Rate and rhythm, regular. Heart sounds, normal S1, normal S2. No S3, no gallop, no rub. Systolic murmur, not heard. Diastolic murmur, not heard. EXTREMITIES: No cyanosis, no edema. Peripheral pulses, full and equal in all extremities, except as noted. No bruits appreciated. ABDOMEN: Soft, nondistended. Normal aorta. No bruit. Nontender. No masses. Liver, nontender, no hepatomegaly. Spleen, nontender, no splenomegaly. MUSCULOSKELETAL: No joint tenderness. No joint swelling. No erythema. NEUROLOGICAL: Normal gait, normal strength, normal tone. SKIN: Warm and dry. OVERALL IMPRESSION: 1. Cardiomyopathy, stable on her current medications, well compensated without overt heart failure. At this time, the only problem would be iatrogenic with CONSULT REPORT [id number] XU URIBE fluid overload. I would be very judicious in the use of IV fluids in the devyn and postoperative phase and she should be fine, as well using IV Lasix as needed to manage fluid overload. 2. Ischemic heart disease. She is stable from this standpoint. Her EKG is abnormal with a left bundle-branch block, but this is unchanged. She has no anginal symptomatology, stable from this standpoint. Proceed with hip surgery at acceptable cardiac risk. TRANSINT:[id number] Voice Confirmation ID: [id number] DOCUMENT ID: [id number] ALEXANDER SANDOVAL MD at 1127 CC: [id number] DICTATION DATE: 06/27/18 153 PROPERTY INSPECTOR: 06/27/18 1556 DIS IN 07/03/18 [facility] [address] [place] [address]
== END 2018-07-03 18:20 | DRG 982 ==
LOC: D.ER 12:37 → D.EDHOLD 16:49 → D.MS 16:49
PROVIDERS: Family Medicine; Internal Medicine Pulmonary Disease; Orthopaedic Surgery; ADMIT Family Medicine; ATTEND Family Medicine
PROC: 0SRB0J9 Replacement of Left Hip Joint with Synthetic Substitute, Cemented, Open Approach (ICD-10-PCS; principal; 2018-06-29 10:15)
DX: I11.0 Hypertensive heart disease with heart failure (principal); J44.0 Chronic obstructive pulmonary disease with (acute) lower respiratory infection; J98.11 Atelectasis; M87.9 Osteonecrosis, unspecified; I50.9 Heart failure, unspecified; E87.6 Hypokalemia; M25.552 Pain in left hip; I50.33 Acute on chronic diastolic (congestive) heart failure

== ENCOUNTER 2018-07-03 18:23 | Inpatient (IN) | payer MEDICARE ==
[~2018-07-03] VITALS: Ht 167.6 cm; Wt 78.2 kg
[~2018-07-03 18:23] MED LIST changes: +NORCO-10 PO
[2018-07-03 19:00] VITALS: BP 107/66
[2018-07-03 19:43] VITALS: BMI 27.9
--- NOTE | 2018-07-03 20:15 | NUR ---
ADMITTED TO ROOM 1108A FOR PHYSICAL REHAB AND SERVICES OF DR BOYLE. AWAKE AND ALERT. ORIENTED X 4. RESPIRATIONS SLIGHTLY LABORED WITH HX OF CHF AND COPD. O2.2L ON PER NASAL CANNULA. SALINE LOCK INTACT TO LEFT FOREARM. DRESSING TO LEFT HIP POST HIP REPAIR IS DRY AND INTACT. STATES SHE IS IN A LITTLE PAIN, PAIN SCORE 5 BUT CAN WAIT TO TAKE PAIN MEDICATIONS WITH ALL HS MEDICATIONS. PLEASANT AND COOPERATIVE. NO ACUTE DISTRESS NOTED. CALL LIGHT IN REACH.
--- NOTE | 2018-07-04 02:21 | NUR ---
RESTING IN BED WITH EYES CLOSED AND RESPIRTIONS UNLABORED. NO DISTRESS NOTED. CALL LIGHTIN RADHA.
--- NOTE | 2018-07-04 05:13 | NUR ---
QUIET HOURS. NO ACUTE CHANGES IN CONDITION THIS SHIFT. NO DISTRESS NOTED. CALL LIGHT IN REACH.
[2018-07-04 06:47] LABS: HEMATOCRIT 26.5 % (36.0-48.0); HEMOGLOBIN 8.6 g/dL (12-16); MCH 29.4 pg (26.0-34.0); MCHC 32.5 g/dL (31.0-37.0); MCV 90.4 fL (80.0-100.0); MEAN PLATELET VOLUME 9.7 fL (7.4-10.4); PLATELET COUNT 218 10x3/uL (130-400); RBC 2.93 10x6/uL (4.00-5.40); RDW 15.4 % (11.5-14.5)
--- NOTE | 2018-07-04 07:05 | NUR ---
RECEIVED REPORT. LYING IN BED EYES CLOSED RESTING. EASILY AROUSED WITH VERBAL STIMULI. RR EVEN AND UNLABORED. CONTINUES ON 2L VIA NC. CALL LIGHT WITHIN REACH, FALL PRECAUTIONS IN PLACE. WILL CONTINUE TO MONITOR
[2018-07-04 08:00] VITALS: BP 128/67
[2018-07-04 08:13] LABS: CALC OSMOLALITY 282 mosm/kg (275-300); CALCIUM 8.9 mg/dL (8.5-10.1); CARBON DIOXIDE 31.2 mmol/L (21.0-32.0); CHLORIDE - SERUM 101 mmol/L (98-107); CREATININE - SERUM 0.4 mg/dL (0.6-1.3); GLUCOSE 126 mg/dL (74-106); POTASSIUM - SERUM 4.2 mmol/L (3.5-5.1); SODIUM 139 mmol/L (136-145); UREA NITROGEN 21 mg/dL (7-18); eGFR NON AFRICAN AMERICAN > 90 mL/min (90-120)
[2018-07-04 08:47] LABS: LYMPHOCYTES 21 % (15-50); MONOCYTES 14 % (2-11); NEUTROPHILS 62 % (40-80)
[2018-07-04 08:48] LABS: PLATELET ESTIMATE NORMAL
[2018-07-04 10:37] VITALS: Ht 167.6 cm; Wt 78.2 kg
--- NOTE | 2018-07-04 13:42 | NUR ---
SITTING UP IN BED VISITING WITH . DENIES ANY NEEDS OR PAIN. NO SIGNS OF DISTRESS NOTED. CALL LIGHT WITHIN REACH, FALL PRECAUTIONS IN PLACE. WILL CONTINUE TO MONITOR
--- NOTE | 2018-07-04 16:31 | NUR ---
SITTING UP IN BED WATCHING TV. DENIES ANY PAIN OR NEEDS. NO SIGNS OF ACUTE DISTRESS NOTED. CALL LIGHT WITHIN REACH, FALL PRECAUTIONS IN PLACE. WILL CONTINUE TO MONITOR
[2018-07-04 19:00] VITALS: BP 119/58
--- NOTE | 2018-07-04 19:31 | NUR ---
AWAKE AND ALERT. RESTING IN BED TALKING ON PHONE. NO DISTRESS NOTED. CALL LIGHT IN REACG.
--- NOTE | 2018-07-05 03:08 | NUR ---
RESTING IN BED WITH EYES CLOSED AND RESPIRATIONS UNLABORED. NO DISTRESS NOTED. CALL LIGHT IN REACH.
--- NOTE | 2018-07-05 05:07 | NUR ---
QUIET HOURS. NO ACUTE CHANGES IN CONDITION THIS SHIFT. RESTING IN BED WITH RESPIRATIONS UNLABORED AND NO DISTRESS NOTED. CALL LIGHT IN REACH.
--- NOTE | 2018-07-05 07:10 | NUR ---
RECEIVED REPORT. SITTING UP IN BED ALERT AND ORIENTED X4. DENIES ANY NEEDS. C/O LEFT HIP PAIN 06/15 REQUEST PAIN MEDICATION. CALL LIGHT WITHIN REACH, FALL PRECAUTIONS IN PLACE. WILL CONTINUE TO MONITOR
[2018-07-05 08:00] VITALS: BP 137/78
--- NOTE | 2018-07-05 14:20 | NUR ---
LYING IN BED EYES CLOSED RESTING. NO SIGNS OF DISTRESS NOTED. CONTINUES ON 2L VIA NC. CALL LIGHT WITHIN REACH, FALL PRECAUTIONS IN PLACE. WILL CONTINUE TO MONITOR
--- NOTE | 2018-07-05 18:34 | NUR ---
I have reviewed this patient and I concur with the Shift Assessment completed by the Licensed Practical Nurse today this shift.
--- NOTE | 2018-07-05 19:12 | NUR ---
PT IS RESTING IN BED WITH EYES OPEN. ALERT AND ORIENTED X 3. DENIES ANY PAIN OR DISCOMFORT AT THIS TIME. NO NEEDS VOICED. DRESSING TO LEFT HIP IS CDI. NO DRAINAGE NOTED. O2 IS ON @ 2LPM PER NC. NO SOB NOTED. LFA SALINE LOCK NOTED. SR'S ARE UP X 2 IN BED. CALL LIGHT AND BEDSIDE TABLE ARE WITHIN EASY REACH.
[2018-07-05 19:30] VITALS: BP 136/77
--- NOTE | 2018-07-05 21:46 | NUR ---
PT IS RESTING IN BED WITH EYES OPEN. NO NEEDS VOICED.
--- NOTE | 2018-07-06 00:01 | NUR ---
RESTING IN BED WITH EYES CLOSED.
--- NOTE | 2018-07-06 01:51 | NUR ---
PT IN BED LOWEST POSITION, EYES CLOSED AROUSES EASILY TO VOICE, BREATHS SLOW EVEN AND UNLABORED, NO NEEDS NOTED, FLUIDS AND CALL LIGHT WITHIN REACH,
--- NOTE | 2018-07-06 04:42 | NUR ---
PT IS RESTING IN BED WITH EYES CLOSED. NO DISTRESS NOTED.
--- NOTE | 2018-07-06 07:10 | NUR ---
RECEIVED REPORT. SITTING UP IN BED ALERT AND ORIENTED X4. PLEASANT AFFECT. DENIES ANY NEEDS. CALL LIGHT WITHIN REACH, FALL PRECAUTIONS IN PLACE. WILL CONTINUE TO MONITOR
[2018-07-06 07:25] LABS: CALCIUM 9.1 mg/dL (8.5-10.1); CARBON DIOXIDE 32.6 mmol/L (21.0-32.0); CHLORIDE - SERUM 103 mmol/L (98-107); GLUCOSE 106 mg/dL (74-106); POTASSIUM - SERUM 4.5 mmol/L (3.5-5.1); SODIUM 141 mmol/L (136-145); eGFR NON AFRICAN AMERICAN 87 mL/min (90-120)
[2018-07-06 07:27] LABS: CALC OSMOLALITY 286 mosm/kg (275-300); CREATININE - SERUM 0.7 mg/dL (0.6-1.3); UREA NITROGEN 28 mg/dL (7-18)
[2018-07-06 08:07] LABS: BASOPHILS 0.2 % (0-2); EOSINOPHILS 0.2 % (0-7); HEMATOCRIT 25.7 % (36.0-48.0); HEMOGLOBIN 7.9 g/dL (12-16); IMMATURE GRANULOCYTES 4.2 % (0-5); LYMPHOCYTES 16.9 % (15-50); MCH 28.3 pg (26.0-34.0); MCHC 30.7 g/dL (31.0-37.0); MCV 92.1 fL (80.0-100.0); MEAN PLATELET VOLUME 8.9 fL (7.4-10.4); MONOCYTES 10.6 % (2-11); NEUTROPHILS 67.9 % (40-80); RBC 2.79 10x6/uL (4.00-5.40); RDW 15.3 % (11.5-14.5); WBC 9.6 10x3/uL (4.8-10.8)
[2018-07-06 08:09] VITALS: BP 140/76
[2018-07-06 08:09] LABS: PLATELET COUNT 312 10x3/uL (130-400)
--- NOTE | 2018-07-06 11:31 | RHP ---
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 HISTORY OF PRESENT ILLNESS: The patient is admitted to inpatient rehab for a neurological condition of COPD myopathy. She is a 73-year-old female patient with a 10 year history of CHF, presented to ED via EMS with CHF exacerbation, elevated proBNP, due to her not taking her medications, because she was unable to get up and go to the bathroom the way she needed to secondary to severe left hip pain. 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 Orthopedic surgery was consulted. She underwent a left total hip replacement on 06/29/2018 and then followed by cardiology and pulmonary during her acute stay. She has progressed slowly with therapy and has had continued respiratory issue. She is being diuresed with IV diuretics. She got a history of CHF, hypertension, very severe O2, dependent COPD, coronary artery disease, history of tobacco use. She is currently on telemetry, requiring supplemental O2 with dyspnea on exertion, has proximal muscle weakness, increased shortness of breath, respiratory difficulty, respiratory treatments, deconditioning, acute blood loss anemia, acute pain, debility and impaired mobility. She is a high fall risk and she has self-care deficit. These are all barriers to her discharge home at this time. She lives at home with her and progressively gotten more debilitated over the last couple of months secondary to her hip pain and unable to ambulate. She was able to ambulate with a rolling walker, but was using her wheelchair lately. She has required assistance from her for bathing due to deterioration in her shoulders, but otherwise was independent with ADLs, currently set up for mod assist for ADLs and is set up for total assist at times for mobility. She and her would like her to return back to her prior level of functioning or better to return home. COMORBIDITIES: In this patient include very severe COPD, which is oxygen dependent. She has acute blood loss anemia, acute leukocytosis. She is an ex-smoker, avascular necrosis of her hip, CHF, hypokalemia, anemia, hypotension, elevated troponin, coronary artery disease, and hypertension. PAST MEDICAL HISTORY: Significant for hypertension, CHF, edema, COPD, menopause, and tobacco use. PAST SURGICAL HISTORY: Includes tonsillectomy, adenoidectomy, and now ALEX. CURRENT MEDICATIONS: She is on a tapering dose of prednisone. She is on Flonase nasal spray daily. She is on albuterol updrafts q.6 hours, potassium 10 mEq daily, Singulair 10 mg daily, losartan 50 mg daily, furosemide 40 mg daily, carvedilol 25 mg b.i.d. with meals, aspirin 81 mg daily. She is on [place] 10/325 one tab q.4 hours p.r.n. and Combivent 1 puff q.i.d. HABITS: Does have a history of tobacco use. FAMILY HISTORY: Noncontributory. HISTORY AND PHYSICAL [id number] XU URIBE SOCIAL HISTORY: The patient hopes to return back home with her and get back to her prior level of functioning. REVIEW OF SYSTEMS: GENERAL: Does complain of weakness and fatigue. HEENT: Denies cold, cough, or congestion. CARDIOVASCULAR: Denies chest pain. PHYSICAL EXAMINATION: VITAL SIGNS: Stable, afebrile. GENERAL: Elderly female, in no acute distress, alert upon exam. HEENT: Normocephalic and atraumatic. Mucosa moist. NECK: Supple. No lymphadenopathy. LUNGS: Clear at this time with no wheeze, rhonchi, or rales. HEART: Regular rate and rhythm. She does have a murmur. ABDOMEN: Benign. EXTREMITIES: No clubbing, cyanosis, or edema. NEUROLOGIC: She does have noted proximal muscle weakness and also deterioration in her shoulders. LABORATORY DATA: Her white count is 8.0, H&H 8.6 and 26.5, and platelet count was noted to be 218. Her admit chemistries are pending. ASSESSMENT: This is a 73-year-old female patient admitted to the rehab with a working diagnosis of CHF-myopathy complicated by an avascular necrosis of her hip and O2 dependent COPD. The patient has potential to make improvement. We instituted the following multidisciplinary therapies including, but not limited to physical, occupational, respiratory, speech, nutritional services, prosthetics and orthotics. Given her complex medical condition and risks for more complications, rehabilitation services cannot be provided at a low level of care such as correction facility. PLAN: 1. Admit to [facility] for intensive inpatient therapy to include the following disciplines: A. Physical therapy to improve gait, all transfer skills and bed mobility to a modified independent level. B. Occupational therapy to a modified independent level. C. Case management to assist with discharge planning and placement options. D. Nutrition to assist with nutritional needs. E. Rehabilitation nursing to assist in monitoring the patient's underlying medical conditions and to assist with any type of bowel or bladder management. 2. The patient's current medication and medical care will be continued. 3. The patient will be placed on standard fall precautions. 4. The patient's estimated length of stay is approximately 7-10 days. 5. We will discuss the patient during care team staff meeting this week. TRANSINT:[id number] Voice Confirmation ID: [id number] DOCUMENT ID: [id number] JAYSON notes whether there has been none or any medical/functional change since admission: - No change since prescreen. HISTORY AND PHYSICAL [id number] XU URIBE attests patient continues to be appropriate for IRF: - Continues to be appropriate. TAYLA BOYLE MD at 1131 CC: [id number] DICTATION DATE: 07/04/18802 HEALTH TECHNICIAN: 07/04/18 09 ADM IN [facility] [address] [place] [address]
--- NOTE | 2018-07-06 12:03 | NUR ---
SITTING UP IN W/C WATCHING TV. DENIES ANY NEEDS OR PAIN. NO SIGNS OF DISTRESS NOTED. CALL LIGHT WITHIN REACH, FALL PRECAUTIONS IN PLACE
--- NOTE | 2018-07-06 14:31 | NUR ---
IN THERAPY GYM PARTICIPATING IN PT WITH SALOMON
[2018-07-06 15:36] VITALS: BP 84/45
--- NOTE | 2018-07-06 15:40 | NUR ---
UNIT OF PRBC STARTED. VS BP 84/45, P 79, RR 18, T98.0.
[2018-07-06 15:55] VITALS: BP 105/45
--- NOTE | 2018-07-06 16:03 | NUR ---
BLOOD INFUSING 125ML/HR, STAYED WITH PT FOR 20 MINUTES, NO SIGNS OF ALLERGIC REACTION. VS STABLE. PT DENIES ANY NEEDS OR PAIN. WILL CONTINUE TO MONITOR
--- NOTE | 2018-07-06 16:50 | NUR ---
LEFT FOREARM IV INFILTRATED, CALLED SHEET METAL LAY OUT WORKER KEENAN TO ASSIST.
[2018-07-06 17:00] VITALS: BP 111/56
--- NOTE | 2018-07-06 17:22 | NUR ---
MILLER RN FROM ER STARTED LEFT HAND 20G IV X1 ATTEMPT. IV SECURED WITH TEGADERM DRESSING. PT TOLERATED WELL.
--- NOTE | 2018-07-06 17:32 | NUR ---
I have reviewed this patient and I concur with the Shift Assessment completed by the Licensed Practical Nurse today this shift.
--- NOTE | 2018-07-06 17:48 | NUR ---
SITTING UP IN BED EATING DINNER. DENIES ANY NEEDS OR PAIN. NO SIGNS OF DISTRESS NOTED.
[2018-07-06 19:00] VITALS: BP 111/66
--- NOTE | 2018-07-06 19:42 | NUR ---
PT IS RESTING IN BED VISITING WITH FAMILY MEMBERS. ALERT AND ORIENTED X 3. DENIES ANY DISCOMFORT. BLOOD IS FINISHED AT THIS TIME. NO ADVERSE REACTIONS NOTED. IV FLUSHED WITH NS AND SALINE LOCKED. SR'S ARE UP X 2 IN BED. CALL LIGHT AND BEDSIDE TABLE ARE WITHIN EASY REACH.
--- NOTE | 2018-07-06 22:15 | NUR ---
RESTING IN BED WITH EYES CLOSED.
--- NOTE | 2018-07-07 02:34 | NUR ---
I have reviewed this patient and I concur with the Shift Assessment completed by the Licensed Practical Nurse today this shift.
--- NOTE | 2018-07-07 07:27 | NUR ---
RESTING WO DISTRESS. RESP EVEN AND UNLABORED. CL IN REACH.
[2018-07-07 08:00] VITALS: BP 154/103
--- NOTE | 2018-07-07 12:13 | NUR ---
PARTICIPATED IN THERAPY THIS AM. BACK TO ROOM AND SITTING IN WC AT THIS TIME.
--- NOTE | 2018-07-07 15:30 | NUR ---
NO CHANGE IN ASSESSMENT, RESTING WO DISTRESS. CL IN REACH.
[2018-07-07 21:43] VITALS: BP 119/56
--- NOTE | 2018-07-07 22:00 | NUR ---
0: PATIENT AWAKE AND ALERT THIS EVENING. ASSISTED BACK TO BED FROM BATHROOM WITH MIN ASSIST. C/O PAIN TO HIP/ARM AND WAS MEDICATED WITH PRN NORCO WITH GOOD RESULTS. RASH UNDER ARM AND BREAST ALMOST GONE. RESTING QUIETLY AT THIS TIME. WILL CONTINUE TO MONITOR. CALL LIGHT WITHIN REACH.
--- NOTE | 2018-07-08 00:25 | NUR ---
PATIENT SLEEPING AT THIS TIME. WILL CONTINUE TO MONITOR.
[2018-07-08 08:00] VITALS: BP 115/61
--- NOTE | 2018-07-08 08:07 | NUR ---
THE PATIENT WAS LYING IN BED WHEN STAFF ENTERED HER ROOM. BED IS IN THE LOW POSITION WITH SIDERAILS X2 AND CALL LIGHT WITHIN REACH. THE PATIENT DEMONSTRATES APPRORPIATE USE OF A CALL LIGHT. THE PATIENT APPEARS COMFORTABLE WITH NO QUESTIONS OR COCNERNS AT THIS TIEM.
[2018-07-08 21:40] VITALS: BP 147/68
--- NOTE | 2018-07-08 21:55 | NUR ---
1930 PATIENT ALERT AND ORIENTED X3. SITTING UP IN BED. NO COMPLAINTS AT THIS TIME. 1999 ASSISTED TO BATHROOM AND BACK TO BED. REQUESTED PAIN MEDICATION FOR LEG PAIN. AT THIS TIME PATIENT IS RESTING QUIETLY IN BED. PAIN MEDICATION HELPFUL. WILL CONTINUE TO MONITOR. CALL LIGHT WITHIN REACH.
[2018-07-09 06:43] LABS: BASOPHILS 0.2 % (0-2); EOSINOPHILS 0.6 % (0-7); HEMATOCRIT 32.4 % (36.0-48.0); HEMOGLOBIN 9.9 g/dL (12-16); IMMATURE GRANULOCYTES 3.2 % (0-5); LYMPHOCYTES 19.3 % (15-50); MCHC 30.6 g/dL (31.0-37.0); MCV 88.5 fL (80.0-100.0); MEAN PLATELET VOLUME 8.7 fL (7.4-10.4); MONOCYTES 9.8 % (2-11); NEUTROPHILS 66.9 % (40-80); PLATELET COUNT 351 10x3/uL (130-400); RBC 3.66 10x6/uL (4.00-5.40); RDW 20.3 % (11.5-14.5); WBC 11.3 10x3/uL (4.8-10.8)
[2018-07-09 06:59] LABS: CALC OSMOLALITY 286 mosm/kg (275-300); CALCIUM 9.1 mg/dL (8.5-10.1); CARBON DIOXIDE 35.4 mmol/L (21.0-32.0); CHLORIDE - SERUM 103 mmol/L (98-107); CREATININE - SERUM 0.6 mg/dL (0.6-1.3); GLUCOSE 87 mg/dL (74-106); POTASSIUM - SERUM 4.5 mmol/L (3.5-5.1); SODIUM 143 mmol/L (136-145); UREA NITROGEN 20 mg/dL (7-18); eGFR NON AFRICAN AMERICAN > 90 mL/min (90-120)
--- NOTE | 2018-07-09 07:27 | NUR ---
THE PATIENT WAS SITTING IN BED WHEN STAFF ENETERED HER ROOM. BED IS IN THE LOW POSITION WITH SIDERAILS X2 AND CALL LIGHT WITHIN REACH. THE PATIENT WAS EDUCATED ON THE NEED TO CALL FOR STAFF WHENEVER SHE WANTS TO GET OUT OF BED. PATIENT DEMONSTRATES UNDERSTANDING VIA TEACHABCK METHOD. THE PATIENT APPEARS COMFORTABLE WITH NO QUESTIONS OR CONCERNS AT THIS TIME.
[2018-07-09 08:00] VITALS: BP 136/68
--- NOTE | 2018-07-09 15:54 | NUR ---
PATIENT ADMITTED TO REHAB FROM ACUTE FLOOR. DR. ESPINOZA IS PATIENT PCP. DME AT HOME IS : WHEELCHAIR, NEBULIZER, O2, SHOWER CHAIR AND HER DME COMPANY IS [employer]. PATIENT WOULD CONSIDER [facility] IF UNABLE TO RETURN HOME AT DISCHARGE. WILL CONTINUE TO FOLLOW WITH PATIENT.
[2018-07-09 19:00] VITALS: BP 116/59
--- NOTE | 2018-07-09 20:00 | NUR ---
PATIENT RECEIVED SITTING UP IN BED WATCHING TV. ASSESSMENT & VITAL SIGNS DONE. NO C/O PAIN OR DISTRESS. BED LOW. CALL LIGHT WITHIN REACH. ALARM ON.WILL CONTINUE TO MONITOR.
--- NOTE | 2018-07-09 23:51 | NUR ---
PT IN BED, LOWEST POSITION, EYES CLOSED, AROUSES EASILY TO VOICE, NO IMMEDIATE NEEDS NOTED, FLUIDS AND CALL LIGHT WITHIN REACH
--- NOTE | 2018-07-10 02:33 | NUR ---
PATIENT EYES CLOSED. RESPIRATIONS 18 & EVEN. BED LOW. CALL LIGHT WITHIN REACH. WILL CONTINUE TO MONITOR.
[2018-07-10 08:00] VITALS: BP 146/77
--- NOTE | 2018-07-10 08:15 | NUR ---
PT UP IN WHEELCHAIR WITH EYES OPEN CALL LIGHT IN REACH NO PROBLEMS WILL MONITER
--- NOTE | 2018-07-10 09:17 | NUR ---
Nutrition follow up Pt is eating well on 2gm Na diet. Pt is tolerating low salt diet Ensure ordered on every breakfast tray No recent weight-Will requests weight Pt is trying to slowly lose weight-recommended [address] following
--- NOTE | 2018-07-10 09:28 | NUR ---
SITTING IN WC TALKING ON PHONE. NO DISTRESS NOTED. CL IN REACH.
--- NOTE | 2018-07-10 13:19 | NUR ---
I have reviewed this patient and I concur with the Shift Assessment completed by the Licensed Practical Nurse today this shift.
--- NOTE | 2018-07-10 18:07 | NUR ---
PT RESTING IN CHAIR AT BEDSIDE CALL LIGHT IN REACH WILL MONITER
--- NOTE | 2018-07-10 19:25 | NUR ---
CHECKED VITAL SIGNS, SEE FLOW SHEET.
--- NOTE | 2018-07-10 20:10 | NUR ---
ASSISTED PT TO BATHROOM AND BACK TO BED.
[2018-07-11 00:08] VITALS: BP 168/60
--- NOTE | 2018-07-11 03:46 | NUR ---
REST IN BED, EYE CLOSE, RESP EVEN, NO S/S OF DISTRESS. CALL LIGHT IN REACH.
[2018-07-11 07:01] LABS: BASOPHILS 0.1 % (0-2); HEMATOCRIT 32.3 % (36.0-48.0); HEMOGLOBIN 9.9 g/dL (12-16); IMMATURE GRANULOCYTES 2.3 % (0-5); LYMPHOCYTES 18.9 % (15-50); MCHC 30.7 g/dL (31.0-37.0); MCV 88.3 fL (80.0-100.0); MEAN PLATELET VOLUME 8.7 fL (7.4-10.4); MONOCYTES 10.5 % (2-11); NEUTROPHILS 67.2 % (40-80); PLATELET COUNT 349 10x3/uL (130-400); RBC 3.66 10x6/uL (4.00-5.40); RDW 19.9 % (11.5-14.5)
--- NOTE | 2018-07-11 07:15 | NUR ---
THE PATIENT WAS SITTING IN BED AND TALKING TO STAFF WHEN STAFF ENTERED HER ROOM. BED IS IN THE LOW POSITION WITH SIDERAILS X2 AND CALL LIGHT WITHIN REACH. THE PATIENT DEMOSNTRATED APPRORPIATE USE OF A CALL LIGHT. THE PATIENT APPEARS COMFORTABLE WITH NO QUESTIONS OR CONCERNS AT HTIS TIME.
[2018-07-11 07:33] LABS: CALC OSMOLALITY 285 mosm/kg (275-300); CALCIUM 8.8 mg/dL (8.5-10.1); CARBON DIOXIDE 35.8 mmol/L (21.0-32.0); CHLORIDE - SERUM 102 mmol/L (98-107); CREATININE - SERUM 0.5 mg/dL (0.6-1.3); GLUCOSE 72 mg/dL (74-106); SODIUM 143 mmol/L (136-145); UREA NITROGEN 18 mg/dL (7-18); eGFR NON AFRICAN AMERICAN > 90 mL/min (90-120)
[2018-07-11 07:36] LABS: POTASSIUM - SERUM 3.6 mmol/L (3.5-5.1)
[2018-07-11 08:10] VITALS: BP 137/58
--- NOTE | 2018-07-11 15:12 | NUR ---
CARE TEAM MEETING: PATIENT ATTENDED MEETING AND REQUEST TO STAY HER ALOTTED DAYS. PATIENT IS PROGRESSING IN THERAPY. TENATIVE DISCHARGE DATE IS 07/19/18. WILL CONTINUE TO FOLLOW WITH PATIENT.
[2018-07-11 19:00] VITALS: BP 146/69
--- NOTE | 2018-07-11 20:00 | NUR ---
PT SITTING UP IN WC, ASSESSMENT PER FLOW SHEET, SALINE LOCK IN LEFT HAND INTACT WITH NO REDNESS OR EDEMA, ORANGE CAP PLACED, PT REPORTS FLATUS, BM X 2 TODAY, AND VOIDING WITH NO DIFFICULTY, PT DENIES NEEDS OR PAIN AT THIS TIME
--- NOTE | 2018-07-11 21:15 | NUR ---
PT RESOURCE EFFICIENCY MANAGER LIGHT, PT TO BR VIA WC WITH ASSISTANCE, VOIDED WITH NO DIFFICULTY, PT CHANGED INTO GOWN, PT TO BED, DENIES FURTHER NEEDS OR PAIN, BED IN LOW POSITION, SIDE RAILS X 2, CALL LIGHT IN REACH
--- NOTE | 2018-07-11 23:40 | NUR ---
PT RESTING WITH EYES CLOSED, RESP QUIET, NO DISTRESS NOTED, LEFT UNDISTURBED AT THIS TIME, BED IN LOW POSITION, SIDE RAILS X 2, CALL LIGHT IN REACH
--- NOTE | 2018-07-12 06:59 | NUR ---
THE PATIENT WAS LYING IN BED WHEN STAFF ENTERED HER ROOM. BED IS IN THE LOW POSITION WITH SIDERAILS X2 AND CALLL LIGHT WITHIN REACH. THE PATIENT WAS EDUCATED ON AND DEMONSTRATES THE NEED TO CALL FOR STAFF ASSISTANCE WITH ANY ADLS. THE PATIENT APPEARS COMFORTABLE WITH NO QUESTIONS OR COCNERNS AT THIS TIME.
[2018-07-12 08:00] VITALS: BP 141/49
[2018-07-12 19:15] VITALS: BP 133/64
[2018-07-12 19:20] VITALS: BP 135/73
--- NOTE | 2018-07-12 19:23 | NUR ---
AWAKE AND ALERT. SITTING IN WHEELCHAIR IN ROOM. O2/3L ON PER NASAL CANNULA. NO ACUTE DISTRESS NOTED. CALL LIGHT IN REACH.
--- NOTE | 2018-07-13 02:33 | NUR ---
RESTING IN BED WITH EYES CLOSED AND RESPIRATIONS UNLABORED. NO DISTRESS NOTED. CALL LIGHT IN REACH.
[2018-07-13 07:26] LABS: BASOPHILS 0.2 % (0-2); EOSINOPHILS 1.3 % (0-7); HEMATOCRIT 31.6 % (36.0-48.0); HEMOGLOBIN 9.6 g/dL (12-16); IMMATURE GRANULOCYTES 1.6 % (0-5); LYMPHOCYTES 22.2 % (15-50); MCHC 30.4 g/dL (31.0-37.0); MCV 88.8 fL (80.0-100.0); MEAN PLATELET VOLUME 8.6 fL (7.4-10.4); NEUTROPHILS 63.7 % (40-80); PLATELET COUNT 349 10x3/uL (130-400); RBC 3.56 10x6/uL (4.00-5.40); RDW 19.7 % (11.5-14.5); WBC 10.4 10x3/uL (4.8-10.8)
[2018-07-13 07:36] LABS: CALC OSMOLALITY 287 mosm/kg (275-300); CALCIUM 8.5 mg/dL (8.5-10.1); CARBON DIOXIDE 34.1 mmol/L (21.0-32.0); CHLORIDE - SERUM 103 mmol/L (98-107); CREATININE - SERUM 0.5 mg/dL (0.6-1.3); GLUCOSE 76 mg/dL (74-106); POTASSIUM - SERUM 3.3 mmol/L (3.5-5.1); SODIUM 144 mmol/L (136-145); UREA NITROGEN 19 mg/dL (7-18); eGFR NON AFRICAN AMERICAN > 90 mL/min (90-120)
[2018-07-13 07:55] VITALS: BP 131/48
--- NOTE | 2018-07-13 10:05 | NUR ---
PT AM MEDS ADMINISTERED. PT DENIES NEEDS. WCTM.
[2018-07-13 19:30] VITALS: BP 129/50
--- NOTE | 2018-07-13 20:43 | NUR ---
AWAKE AND ALERT. RESTING IN BED WITH RESPIRATIONS UNLABORED. O2/3L ON PER NASAL CANNULA. NO ACUTE DISTRESS NOTED.
--- NOTE | 2018-07-14 05:11 | NUR ---
QUIET HOURS. NO ACUTE CHANGES IN CONDITION THIS SHIFT. NO DISTRESS NOTED.
[2018-07-14 08:08] VITALS: BP 143/60
--- NOTE | 2018-07-14 09:45 | NUR ---
PT AM MEDS ADMINISTERED. PT PRATIK [place]. [place].
--- NOTE | 2018-07-14 17:52 | NUR ---
IV DC'D TIP INTACT.
[2018-07-14 19:40] VITALS: BP 112/54
--- NOTE | 2018-07-14 19:50 | NUR ---
AWAKE AND ALERT. RESTING IN BED WITH RESPIRATIONS UNLABORED. O2/3L ON PER NASAL CANNULA. DRESSING INTACT TO LEFT HIP. NO DISTRESS NOTED. CALL LIGHT IN REACH.
--- NOTE | 2018-07-15 05:23 | NUR ---
QUIET HORUS. NO ACUTE CHANGES IN CONDITION THIS SHIFT. DRESSING TO LEFT HIP CHANGED. SMALL AMOUNT OF LIGHT BROWN DRAINAGE NOTED TO OLD DRESSING. NO C/O DISCOMFORTS. NO DISTRESS NOTED. CALL LIGHT IN REACH.
[2018-07-15 08:31] VITALS: BP 132/55
[2018-07-15 18:44] VITALS: BP 139/46
--- NOTE | 2018-07-15 20:30 | NUR ---
PATIENT SITTING UP IN BED WATCHING TV. NO COMPLAINTS AT THIS TIME. DENIES PAIN OR DISCOMFORT. WILL CONTINUE TO MONITOR. CALL LIGHT WITHIN REACH.
--- NOTE | 2018-07-16 01:34 | NUR ---
ASSISTED UP TO BATHROOM USING WALKER. NO COMPLAINTS AT THIS TIME.WILL CONTINUE TO MONITOR
[2018-07-16 06:53] LABS: BASOPHILS 0.4 % (0-2); HEMATOCRIT 34.8 % (36.0-48.0); HEMOGLOBIN 10.7 g/dL (12-16); IMMATURE GRANULOCYTES 1.1 % (0-5); LYMPHOCYTES 24.6 % (15-50); MCH 27.4 pg (26.0-34.0); MCHC 30.7 g/dL (31.0-37.0); MCV 89.2 fL (80.0-100.0); MEAN PLATELET VOLUME 8.6 fL (7.4-10.4); MONOCYTES 11.6 % (2-11); NEUTROPHILS 60.3 % (40-80); PLATELET COUNT 331 10x3/uL (130-400); RDW 19.5 % (11.5-14.5); WBC 10.6 10x3/uL (4.8-10.8)
[2018-07-16 07:07] LABS: CALC OSMOLALITY 282 mosm/kg (275-300); CARBON DIOXIDE 35.5 mmol/L (21.0-32.0); CHLORIDE - SERUM 102 mmol/L (98-107); CREATININE - SERUM 0.6 mg/dL (0.6-1.3); GLUCOSE 90 mg/dL (74-106); POTASSIUM - SERUM 4.3 mmol/L (3.5-5.1); SODIUM 141 mmol/L (136-145); UREA NITROGEN 17 mg/dL (7-18); eGFR NON AFRICAN AMERICAN > 90 mL/min (90-120)
[2018-07-16 08:00] VITALS: BP 121/52
--- NOTE | 2018-07-16 08:45 | NUR ---
PT AM MEDS ADMINISTERED. PT PRATIK [place]. HERNAN.
--- NOTE | 2018-07-16 10:55 | NUR ---
Nutrition follow up 2gm Na diet with good po intake Pt wanting to know if it is ok to take green tea extract, hydroxycut, or lipozene to help with weight loss. Instructed pt NOT to take these products Pt may drink 3 cups of green tea daily to help with weight loss RD following per day
--- NOTE | 2018-07-16 19:29 | NUR ---
AWAKE AND ALERT. RESTING IN BED. RESPIRATIONS UNLABORED. O2/2L ON PER NASAL CANNULA. NO DISTRESS NOTED. CALL LIGHT IN REACH. DRESSING INTACT TO LEFT HIP.
[2018-07-16 20:51] VITALS: BP 108/52
--- NOTE | 2018-07-17 05:08 | NUR ---
QUIET HOURS. RESTING IN BED WITH RESPRIATIONS UNLABORED. NO DISTRESS NOTED. NO ACUTE CHANGES IN CONDITION THIS SHIFT.
[2018-07-17 08:00] VITALS: BP 127/56
--- NOTE | 2018-07-17 08:00 | NUR ---
PT RESTING IN BED WITH EYES OPEN CALL LIGHT IN REACH WILL MONITER
--- NOTE | 2018-07-17 14:39 | NUR ---
IN THERAPY.DOMINIQUE WELL.
--- NOTE | 2018-07-17 18:31 | NUR ---
PT RESTING IN BED WITH EYES OPEN CALL LIGHT IN REACH NO PROBLEMS WILL MONITER
[2018-07-17 19:00] VITALS: BP 120/54
--- NOTE | 2018-07-17 20:00 | NUR ---
ROUNDS MADE, PT IS SITTING UP IN BED RECEIVING RESP TREATMENT, INFORMED PT THAT I WILL BE BACK SHORTLY TO DO ASSESSMENT AND BRING 2100 MEDS, PT VERBALIZES UNDERSTANDING, DENIES NEEDS AT THIS TIME
--- NOTE | 2018-07-17 21:00 | NUR ---
ASSESSMENT PER FLOW SHEET, PT REPORTS FLATUS, BM YESTERDAY X 2, AND VOIDING WITH NO DIFFICULTY, PT DENIES PAIN, ADM 2100 MED PER MD ORDERS, SEE EMAR, PT DENIES FURTHER NEEDS, BED IN LOW POSITION, SIDE RAILS X 2, CALL LIGHT IN REACH
--- NOTE | 2018-07-18 00:22 | NUR ---
PT UP TO BR VIA WALKER WITH ASSISTANCE, PT TO BR, VOIDED WITH NO DIFFICULTY, PT BACK TO BED, DENIES FURTHER NEEDS, BED IN LOW POSITION, SIDE RAILS X 2, CALL LIGHT IN REACH
--- NOTE | 2018-07-18 05:07 | NUR ---
PT AWAKE, LAB JUST FINISHED AM BLOOD DRAW, PT DENIES NEEDS OR PAIN AT THIS TIME, BED IN LOW POSITION, SIDE RAILS X 2, CALL LIGHT IN REACH
[2018-07-18 07:25] LABS: BASOPHILS 0.4 % (0-2); EOSINOPHILS 3.2 % (0-7); HEMATOCRIT 31.3 % (36.0-48.0); HEMOGLOBIN 9.6 g/dL (12-16); LYMPHOCYTES 20.1 % (15-50); MCH 27.4 pg (26.0-34.0); MCHC 30.7 g/dL (31.0-37.0); MCV 89.2 fL (80.0-100.0); MEAN PLATELET VOLUME 8.8 fL (7.4-10.4); MONOCYTES 14.7 % (2-11); NEUTROPHILS 60.6 % (40-80); PLATELET COUNT 277 10x3/uL (130-400); RBC 3.51 10x6/uL (4.00-5.40); RDW 19.2 % (11.5-14.5); WBC 8.4 10x3/uL (4.8-10.8)
[2018-07-18 07:42] LABS: CALC OSMOLALITY 280 mosm/kg (275-300); CALCIUM 8.8 mg/dL (8.5-10.1); CARBON DIOXIDE 34.3 mmol/L (21.0-32.0); CHLORIDE - SERUM 102 mmol/L (98-107); CREATININE - SERUM 0.4 mg/dL (0.6-1.3); GLUCOSE 82 mg/dL (74-106); SODIUM 141 mmol/L (136-145); UREA NITROGEN 14 mg/dL (7-18)
[2018-07-18 07:43] LABS: POTASSIUM - SERUM 3.6 mmol/L (3.5-5.1); eGFR NON AFRICAN AMERICAN > 90 mL/min (90-120)
[2018-07-18 08:00] VITALS: BP 127/31
--- NOTE | 2018-07-18 09:50 | NUR ---
PT AM MEDS ADMINSITERED. PT DENIES NEEDS. WCTM.
--- NOTE | 2018-07-18 18:12 | NUR ---
PT EATING DINNER, DENIES NEEDS. WCTM.
[2018-07-18 19:00] VITALS: BP 106/57
--- NOTE | 2018-07-18 19:04 | NUR ---
AWAKE AND ALERT. RESTING IN WHEELCHAIR WITH RESPIRATIONS UNLABORED. NO DISTRESS NOTED. CALL LIGHT IN REACH.
--- NOTE | 2018-07-19 01:35 | NUR ---
RESTING IN BED WITH EYES CLOSED AND RESPIRATIONS UNLABORED. NO DISTRESS NOTED. CALL LIGHT IN REACH.
--- NOTE | 2018-07-19 05:34 | NUR ---
QUIET HOURS. RESTING IN BED WITH NO DISTRESS NOTED. NO CHANGES IN CONDITION THIS SHIFT.
[2018-07-19] MEDS ORDERED: FLUTICASONE PRO16 GM NASAL (06:56)
[2018-07-19] MEDS ORDERED: NORCO-10 PO (06:57)
[2018-07-19 08:00] VITALS: BP 135/43
[2018-07-19] MEDS ORDERED: OMNICEF300 MG PO (08:47)
--- NOTE | 2018-07-19 09:46 | NUR ---
PATIENT DSICHARGING HOME TODAY WITH FAMILY. [facility] WILL PROVIDE [facility] AT HOME. [employer] DELIVERED A ROLLING WALKER TO PATIENT. DR. ESPINOZA 07/25/18 @ 10:30, DR. JAY 07/24/18 @ 1:15. PATIENT CHOICE FORM AND [facility] FORMS SIGNED, COPY GIVEN TO PATIENT AND FILED IN CHART. DISCHARG INSTRUCTIONS WITH FIM DATA FAXED TO PCP, HOME HEALTH AND REVIEWED WITH PATIENT.
--- NOTE | 2018-07-19 12:45 | NUR ---
PT DCD TO HOME VIA WHEELCHAIR WITH DISCHARGE SUMMARY AND MEDS REVIEWED WITH PT NO QUESTIONS TOLERATED WELL
== END 2018-07-19 15:45 | disposition home health service (06) | DRG 92 ==
LOC: D.REHAB 18:23
PROVIDERS: ADMIT Emergency Medicine; ATTEND Emergency Medicine
DX: G72.89 Other specified myopathies (principal); J44.1 Chronic obstructive pulmonary disease with (acute) exacerbation; D62 Acute posthemorrhagic anemia; M87.9 Osteonecrosis, unspecified; R53.81 Other malaise; Z99.81 Dependence on supplemental oxygen; D72.829 Elevated white blood cell count, unspecified; I50.89 Other heart failure; E87.6 Hypokalemia; I95.9 Hypotension, unspecified; I25.10 Atherosclerotic heart disease of native coronary artery without angina pectoris; I11.0 Hypertensive heart disease with heart failure; I50.9 Heart failure, unspecified; Z87.891 Personal history of nicotine dependence; J30.9 Allergic rhinitis, unspecified